=== PATIENT | male | born 1955 | race Caucasian/White ===

== ENCOUNTER 2020-12-29 15:43 | Observation (INO) | payer OTHER ==
[~2020-12-29] VITALS: Ht 185.4 cm; Wt 81.6 kg
[~2020-12-29 15:43] MED LIST: ADMELOG SO100 UNIT/1 SQ; ASPIRIN 325MG325 MG PO; ASPIRIN325 MG PO; AUGMENTIN 875-1 EACH PO; BASAGLAR K100 UNIT/1 SQ; FLOMAX0.4 MG PO; IMDUR ER TAB 3030 MG PO; LEVEMIR100 UNIT/1 SC; LIPITOR TAB 2020 MG PO; LIPITOR40 MG PO; LISINOPRIL5 MG PO; LOPRESSOR 25 MG25 MG PO; NEURONTIN 300300 MG PO; NORCO 10-325 T1 EACH PO; NOVOLOG 10100 UNITS/ SC; PLAVIX 75 MG TA75 MG PO; PROTONIX40 MG PO; ROBAFEN100 MG/5 M PO; TOPROL XL25 MG PO
[2020-12-29 17:07] LABS: HEMOGLOBIN 13.7 gm/dl (14.0-17.5); RED BLOOD COUNT 4.79 M/UL (4.20-5.50); WHITE BLOOD COUNT 7.1 K/UL (4.5-11.0)
[2020-12-29 17:24] LABS: BUN/CREATININE RATIO 16 (0-10)
--- NOTE | 2020-12-29 21:11 | NUR ---
PT DOES NOT KNOW HOME MEDICATIONS AND COULD NOT CONFIRM ANY MEDICATIONS. COULD NOT COMPLETE HOME MED REC AT THIS TIME. PT IS TRYING TO REACH HIS BOSS TO SEE IF HE CAN BRING HIS HOME MEDICATIONS OR GET AHOLD OF HIS . PT GAVE EMERGENCY CONTACT NAME, BUT COULD NOT CONFIRM HER PHONE NUMBER.
--- NOTE | 2020-12-30 02:15 | NUR ---
PT FINALLY GOT INTO CONTACT WITH . 'S PHONE NUMBER IS UPDATED IN PT'S CHART. GAVE ME THE MAJORITY OF PT'S MEDICATIONS, BUT STATED THAT HE HAD MORE DAILY MEDICATIONS. THEY HAD THROWN AWAY THE BOTTLES BECAUSE HE NEEDED REFILLS. STATED THAT SHE WOULD CALL HIS PHARMACY TOMORROW TO GET THE NAMES AND DOSAGES OF THE REMAINING MEDICATIONS. STATED THAT THE PT USES [facility].
[2020-12-30] MEDS ORDERED: DIGOXIN125 MCG PO (02:21)
[2020-12-30] MEDS ORDERED: LEVOTHYROXINE25 MC1 PO (02:21)
[2020-12-30] MEDS ORDERED: ASPIRIN81 MG PO (02:21)
[2020-12-30] MEDS ORDERED: GABAPENTIN600 MG PO (02:22)
[2020-12-30 05:55] LABS: RED BLOOD COUNT 4.62 M/UL (4.20-5.50); WHITE BLOOD COUNT 5.8 K/UL (4.5-11.0)
[2020-12-30 06:19] LABS: BUN/CREATININE RATIO 19 (0-10)
[2020-12-30] MEDS ORDERED: XARELTO 10 MG T10 MG PO (12:11)
[2020-12-30] MEDS ORDERED: LASIX20 MG PO (12:13)
[2020-12-30] MEDS ORDERED: NITROSTAT 0.40.4 MG SL (12:18)
--- NOTE | 2020-12-31 14:40 | NUR ---
PATIENT NOTED TO HAVE CHANGED INTO HIS REGULAR CLOTHING BUT KEPT A PAIR OF YELLOW HOSPITAL SOCKS ON A FALL RISK IDENTIFIER. PATIENT INSISTED THAT HE HAD BEEN WALKING FOR A LONG TIME AND DIDN'T NEED TO BE "WATCHED ALL THE TIME. RN VERBALIZED THAT IT WAS FOR HIS SAFETY BASED ON THE FACT THAT HE HAD IV ACCESS, WAS WEAKER THAN USUAL R/T BEING NPO FOR HIS PROCEDURE, AND THAT HE HAD COMORBIDITIES IN ADDITION TO HIS ADMITTING DIAGNOSIS. PATIENT CONTINUED TO REFUSE FALL RISK PRECAUTIONS BASED ON FACILITY POLICY. PATIENT HAD EXPRESSED CONCERNS ABOUT THE LENGTH OF HIS HOSPITAL STAY BECAUSE HE SAID THAT HE HAD A "LOAD TO [place]" TOMORROW AT 1 PM AND IF HE WANTED TO PAY HIS BILLS, HE HAD TO BE THERE. DR. ARCHER, RN, AND STAFF VERBALIZED THE IMPORTANCE OF THIS PROCEDURE AND REINFORCED EDUCTAION OF THE POTENTIAL COMPLICATIONS THAT COULD FOLLOW IF HE DIDN'T HAVE IT DONE. PATIENT STATED MULTIPLE TIMES TO MD AND RN THAT HE WOULD GO THROUGH WITH THE PROCEDURE AND VERBALIZED UNDERSTANDING OF ITS SIGNIFICANCE IN REGARDS TO HIS HEALTH. BENCH ASSEMBLER BATTERY SAW PATIENT WALKING IN THE HALLWAY WHILE USING HIS CANE AND NOTIFIED CATERING ATTENDANT LETICIA TO ALERT RN IF HE LEFT THE FLOOR. RN RECEIVED A CALL FROM CATERING ATTENDANT SAYING THAT DAVIE HOGAN HAD RAN INTO HIM AND REQUESTED ASSISTANCE BY ELEVATORS ON 4TH FLOOR. ONCE OVER THERE, RN WAS TOLD BY DAVIE THAT THE PATIENT HAD STATED THAT HE WAS GOING TO THE [place] TO GET SOMETHING TO EAT EVEN THOUGH HE WAS TOLD BY DAVIE THAT HE WAS A FALL RISK AND NPO PENDING A PROCEDURE. PATIENT BECAME VERBALLY AGGRESSIVE WITH STAFF AND DAVIE INSTRUCTED ME TO GIVE HIM A FEW MINUTES TO GET TO THE [place] AND COME BACK TO THE FLOOR HE WAS ON TELEMETRY. RN THEN NOTICED THAT THE PATIENT'S TELEMETRY HAD BEEN DISCONNECTED ON THE MONITOR AT THE NURSE'S STATION AND CALLED TELEMETRY. TELEMETRY STATED THAT IT WAS LOCATED AT THE ADMISSIONS DESK IN THE [facility] [facility]. RN NOTIFIED SECURITY AND GAVE A DESCRIPTION OF PATIENT'S APPEARANCE AND STATED THAT HE COULD BE IN THE [place] OR BY ADMISSIONS DESK. SECURITY STATED THAT HE WAS NOWHERE TO BE FOUND. RN NOTIFIED DAVIE HOGAN, MIGUEL PENA, AND DR. ARCHER. DAVIE INSTRUCTED RN TO ATTEMPT TO GET IN TOUCH WITH PATIENT OR FAMILY TO REQUEST HE RETURN TO THE FACILITY TO BE DISCHARGED AGAINST MEDICAL ADVICE PROPERLY THE PATIENT LEFT WITH HIS IV STILL IN. RN WAS UNSUCCESSFUL IN CONTACTING THE PATIENT AND HIS EMERGENCY CONTACT, BUT DID MANAGE TO CONTACT HIS DAUGHTER AT [phone]. RN INFORMED PATIENT'S DAUGHTER THAT HE HAD LEFT AGAINST MEDICAL ADVICE AND STILL HAD HIS IV IN. SHE STATED THAT SHE HAD DRIVEN BY HIS HOUSE AND SAW THAT HE WAS THERE EVEN THOUGH WHEN SHE CALLED HIS GIRLFRIEND AND SHE TOLD THE DAUGHTER THAT SHE HADN'T SEEN HIM. RN INFORMED PATIENT'S DAUGHTER THAT WITH AN IV IN PLACE, HE WAS AT RISK FOR SEVERAL COMPLICATIONS IF NOT PROPERLY REMOVED. RN ASKED IF THERE WAS ANY WAY TO REACH THE PATIENT OR IF SHE COULD INFORM HIM OF THE DANGERS INVOLVING SOLVENT STATION ATTENDANT IV PLACEMENT NOT UNDER THE SUPERVISION OF MEDICAL PERSONNEL. 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 RN VERBALIZED UNDERSTANDING AND INFORMED PATIENT'S DAUGHTER NOT TO PUT HERSELF IN HARM'S WAY, BUT IF SHE COULD GET HIM THE MESSAGE SAFELY, IT WOULD BE MUCH APPRECIATED. RN INFORMED DAVIE HOGAN MD, AND MIGUEL PENA.
--- NOTE | 2020-12-31 14:45 | NUR ---
PT NOTED AMBULATING IN [place] WITH USE OF A CANE. NOTED WITH UNSTEADY GAIT.STATED HIS SISTER WAS COMING TO SEE HIM AND WANTED TO KNOW WHERE SHE WOULD COME TO. ASSISTED PT TO WAITING AREA, PT VERY UPSET WITH STAFF ESCORT. EXPLAINED THAT HE WAS VERY UNSTEADY AND WE WERE AFRAID HE WOULD FALL. HE STATED THAT HE HAD BEEN ON THIS EARTH LONGER THAT WE HAD BEEN ALIVE AND HE COULD HANDLE HIMSELF. SISTER ARRIVED TO FLOOR AND PT IMMEDIATELY WENT TO GO WITH HER. ATTEMPTED TO EDUCATE PATIENT ON RISKS IF HE ATE BEFORE A PROCEDURE OR LEFT THE FLOOR. PT STATED THAT HE WAS GOING TO GET SOMETHING TO EAT. SISTER ATTEMPTED TO EXPLAIN THAT HE COULD NOT EAT BECAUSE OF HIS PROCEDURE. PT GOT ON TO VISITOR ELEVATOR AND STATED HE WAS GOING TO THE [facility]. DAVIE HOGAN, PRIMARY NURSE AND MYSELF WITNESSED THIS. PT NOT RECEPTIVE, AND VERY UPSET CALLING US "BODYGUARDS" TO HIS SISTER. DAVIE HOGAN, MYSELF AND PRIMARY NURSE ALL ATTE
== END 2020-12-31 16:59 | disposition left against medical advice (07) ==
LOC: ER1 15:43 → CDU 17:30 → MED SURG 4 17:30
PROVIDERS: Emergency Medicine; ADMIT Internal Medicine
DX: R07.9 Chest pain, unspecified (principal); I25.10 Atherosclerotic heart disease of native coronary artery without angina pectoris; I10 Essential (primary) hypertension; E11.65 Type 2 diabetes mellitus with hyperglycemia; E78.5 Hyperlipidemia, unspecified; I48.92 Unspecified atrial flutter; I48.91 Unspecified atrial fibrillation; I44.30 Unspecified atrioventricular block; K21.9 Gastro-esophageal reflux disease without esophagitis; N40.0 Benign prostatic hyperplasia without lower urinary tract symptoms; Z79.02 Long term (current) use of antithrombotics/antiplatelets; Z79.4 Long term (current) use of insulin; Z79.899 Other long term (current) drug therapy; Z95.5 Presence of coronary angioplasty implant and graft; Z86.73 Personal history of transient ischemic attack (TIA), and cerebral infarction without residual deficits; Z79.82 Long term (current) use of aspirin; Z53.29 Procedure and treatment not carried out because of patient's decision for other reasons; Z20.822 Contact with and (suspected) exposure to COVID-19
CPT/HCPCS: ECHO; 36415; 71045; 78452; 80048; 80053; 82550; 82553; 82962; 83036; 83874; 84484; 85025; 85610; 85730; 93005; 93017; 93306; 99285; A9502; G0378; J1650; J2785; J7030; J7050; U0002

== ENCOUNTER 2021-10-17 17:54 | Inpatient (IN) | payer OTHER ==
[~2021-10-17] VITALS: Ht 185.4 cm; Wt 90.3 kg
[~2021-10-17 17:54] MED LIST changes: +ASPIRIN81 MG PO; +DIGOXIN125 MCG PO; +GABAPENTIN600 MG PO; +LASIX20 MG PO; +LEVOTHYROXINE25 MCG PO; +NITROSTAT 0.40.4 MG SL; +XARELTO20 MG PO
[2021-10-17 23:04] LABS: HEMOGLOBIN 13.8 gm/dl (14.0-17.5); RED BLOOD COUNT 4.84 M/UL (4.20-5.50); WHITE BLOOD COUNT 8.5 K/UL (4.5-11.0)
[2021-10-17 23:14] LABS: BUN/CREATININE RATIO 14 (0-10)
[2021-10-18] MEDS ORDERED: CLOPIDOGREL75 MG PO (18:11)
[2021-10-18] MEDS ORDERED: ENTRESTO 24 MG1 EACH PO (18:11)
[2021-10-18] MEDS ORDERED: K-TAB ER10 MEQ PO (18:11)
[2021-10-19 03:25] LABS: WHITE BLOOD COUNT 6.7 K/UL (4.5-11.0)
[2021-10-19 03:28] LABS: RED BLOOD COUNT 4.31 M/UL (4.20-5.50)
[2021-10-19 04:00] LABS: BUN/CREATININE RATIO 15 (0-10)
[2021-10-20 04:45] LABS: HEMOGLOBIN 11.7 gm/dl (14.0-17.5); RED BLOOD COUNT 4.29 M/UL (4.20-5.50); WHITE BLOOD COUNT 7.5 K/UL (4.5-11.0)
[2021-10-20 05:32] LABS: BUN/CREATININE RATIO 16 (0-10)
--- NOTE | 2021-10-20 20:08 | NUR ---
REPORT TO LORENE BALBUENA
[2021-10-21 09:03] LABS: HEMOGLOBIN 12.4 gm/dl (14.0-17.5); RED BLOOD COUNT 4.4 M/UL (4.20-5.50); WHITE BLOOD COUNT 7.2 K/UL (4.5-11.0)
[2021-10-21 09:38] LABS: BUN/CREATININE RATIO 15 (0-10)
--- NOTE | 2021-10-21 18:22 | NUR ---
REPORT CALLED TO KSENIA AT [facility], IN [facility].
[2021-10-22 04:49] LABS: RED BLOOD COUNT 4.35 M/UL (4.20-5.50)
[2021-10-22 05:28] LABS: BUN/CREATININE RATIO 15 (0-10)
== END 2021-10-22 11:19 | disposition short-term general hospital (02) | DRG 299 ==
LOC: ER1 17:54 → 3 EAST 10-18 02:39 → CDU 10-18 02:39 → 3 EAST 10-18 21:30 → MED SURG 4 10-20 20:31
PROVIDERS: Internal Medicine; Physician Assistant; ADMIT Internal Medicine
PROC: 8E0ZXY6 Isolation (ICD-10-PCS; principal; 2021-10-18)
DX: E11.52 Type 2 diabetes mellitus with diabetic peripheral angiopathy with gangrene (principal); U07.1 COVID-19; M86.8X7 Other osteomyelitis, ankle and foot; I96 Gangrene, not elsewhere classified; L03.115 Cellulitis of right lower limb; I48.92 Unspecified atrial flutter; I50.22 Chronic systolic (congestive) heart failure; E11.69 Type 2 diabetes mellitus with other specified complication; E11.40 Type 2 diabetes mellitus with diabetic neuropathy, unspecified; I48.0 Paroxysmal atrial fibrillation; E78.5 Hyperlipidemia, unspecified; I11.0 Hypertensive heart disease with heart failure; I25.10 Atherosclerotic heart disease of native coronary artery without angina pectoris; Z86.73 Personal history of transient ischemic attack (TIA), and cerebral infarction without residual deficits; Z79.899 Other long term (current) drug therapy; Z95.828 Presence of other vascular implants and grafts; Z80.8 Family history of malignant neoplasm of other organs or systems; Z79.01 Long term (current) use of anticoagulants; Z95.1 Presence of aortocoronary bypass graft; Z79.82 Long term (current) use of aspirin
CPT/HCPCS: ECHO; 36415; 71045; 73630; 73718; 75635; 80053; 80202; 82962; 83605; 85025; 85652; 86140; 87040; 93005; 93306; 93926; 96374; 96375; 96376; 99284; G0378; J1170; J1335; J1650; J2405; J3370; J7030; J7050; J7070; Q9967; U0002

== ENCOUNTER 2022-01-07 22:58 | Observation (INO) | payer OTHER ==
[~2022-01-07] VITALS: Ht 185.4 cm; Wt 86.2 kg
[~2022-01-07 22:58] MED LIST changes: +CLOPIDOGREL75 MG PO; +ENTRESTO 24 MG1 EACH PO; +K-TAB ER10 MEQ PO
[2022-01-07 23:44] LABS: HEMOGLOBIN 12.7 gm/dl (14.0-17.5); RED BLOOD COUNT 4.41 M/UL (4.20-5.50); WHITE BLOOD COUNT 6.2 K/UL (4.5-11.0)
[2022-01-08 00:12] LABS: BUN/CREATININE RATIO 12 (0-10)
--- NOTE | 2022-01-08 10:33 | NUR ---
PATIENT WANTED TO GO OUT AND SMOKE, I ADVISED HIM THAT HE NEEDED TO STAY IN HIS ROOM FOR WHEN THE DOCTORS ROUND, PATIENT SAID HE WOULD BE RIGHT BACK AND HE WAS GOING TO GO ANYWAY.
[2022-01-09 07:04] LABS: HEMOGLOBIN 12.1 gm/dl (14.0-17.5); RED BLOOD COUNT 4.21 M/UL (4.20-5.50); WHITE BLOOD COUNT 6.8 K/UL (4.5-11.0)
[2022-01-09 07:33] LABS: BUN/CREATININE RATIO 16 (0-10)
[2022-01-09] MEDS ORDERED: ISOSORBIDE MONO30 MG PO (14:21)
== END 2022-01-09 15:29 | disposition home or self-care (01) ==
LOC: ER1 22:58 → MED SURG 4 01-08 01:57 → CDU 01-08 01:57 → MED SURG 4 01-08 03:45
PROVIDERS: Physician Assistant Medical; ADMIT Internal Medicine
PROC: 4A023N7 Measurement of Cardiac Sampling and Pressure, Left Heart, Percutaneous Approach (ICD-10-PCS; principal; 2022-01-07)
PROC: B2111ZZ Fluoroscopy of Multiple Coronary Arteries using Low Osmolar Contrast (ICD-10-PCS; 2022-01-07)
DX: I25.110 Atherosclerotic heart disease of native coronary artery with unstable angina pectoris (principal); I48.92 Unspecified atrial flutter; I11.0 Hypertensive heart disease with heart failure; I50.22 Chronic systolic (congestive) heart failure; G89.4 Chronic pain syndrome; I48.0 Paroxysmal atrial fibrillation; E11.9 Type 2 diabetes mellitus without complications; E78.5 Hyperlipidemia, unspecified; K21.9 Gastro-esophageal reflux disease without esophagitis; E03.9 Hypothyroidism, unspecified; I44.30 Unspecified atrioventricular block; N40.0 Benign prostatic hyperplasia without lower urinary tract symptoms; Z20.822 Contact with and (suspected) exposure to COVID-19; Z95.5 Presence of coronary angioplasty implant and graft; Z86.73 Personal history of transient ischemic attack (TIA), and cerebral infarction without residual deficits; Z79.4 Long term (current) use of insulin; Z79.01 Long term (current) use of anticoagulants; Z79.890 Hormone replacement therapy; Z79.02 Long term (current) use of antithrombotics/antiplatelets; Z79.899 Other long term (current) drug therapy
CPT/HCPCS: 36415; 71045; 80048; 80053; 82550; 82553; 82962; 83036; 83880; 84439; 84443; 84484; 85025; 90471; 90715; 94760; 96374; 96375; 99152; 99153; 99285; C1769; C1894; G0378; J1644; J2250; J2270; J2405; J3010; J7040; Q9967; U0002

== ENCOUNTER 2022-05-01 22:09 | Emergency (ER) | payer MEDICARE, OTHER ==
[~2022-05-01 22:09] MED LIST changes: +ISOSORBIDE MONO30 MG PO
[2022-05-02 00:03] LABS: HEMOGLOBIN 11.2 gm/dl (14.0-17.5); RED BLOOD COUNT 3.98 M/UL (4.20-5.50); WHITE BLOOD COUNT 8.2 K/UL (4.5-11.0)
[2022-05-02 00:35] LABS: BUN/CREATININE RATIO 13 (0-10)
[2022-05-02] MEDS ORDERED: K-TAB ER20 MEQ PO (06:38)
[2022-05-02] MEDS ORDERED: LASIX40 MG PO (06:38)
== END 2022-05-02 07:22 | disposition home or self-care (01) ==
LOC: ER1 22:09
PROVIDERS: Physician Assistant
DX: R07.9 Chest pain, unspecified (principal); I11.0 Hypertensive heart disease with heart failure; I50.9 Heart failure, unspecified; I48.92 Unspecified atrial flutter; E87.6 Hypokalemia; I48.91 Unspecified atrial fibrillation; E78.5 Hyperlipidemia, unspecified; Z79.02 Long term (current) use of antithrombotics/antiplatelets; Z79.01 Long term (current) use of anticoagulants; F17.220 Nicotine dependence, chewing tobacco, uncomplicated; W01.10XA Fall on same level from slipping, tripping and stumbling with subsequent striking against unspecified object, initial encounter
CPT/HCPCS: 71045; 80053; 82550; 82553; 83880; 84484; 85025; 93005; 96374; 99285